=== PATIENT | male | born 1990 | race Caucasian/White ===

== ENCOUNTER 2024-02-10 10:00 | Emergency (ER) | payer SELFPAY ==
[~2024-02-10] VITALS: Ht 182.9 cm; Wt 100.0 kg
[~2024-02-10 10:00] MED LIST: CEPHALEXIN500 MG PO; CORTISPORIN OTI10 M2 AS; KEFLEX500 MG PO; NAPROSYN500 MG PO; NO
[2024-02-10] MEDS ORDERED: SODIUM CHLORIDE 0.9% 1,000 ML IV ONE (10:25)
[2024-02-10] MEDS ORDERED: ONDANSETRON HCl 4 MG/2 ML SDV IV ONE (10:25)
[2024-02-10] MEDS ORDERED: KETOROLAC TROMETHAMINE 30 MG/ML SDV IV ONE (10:25)
[2024-02-10 10:34] LABS: BASO% 0.4 % (0-3); EOS% 1.2 % (0-8); HEMATOCRIT 47.4 % (39.0-50.0); HEMOGLOBIN 16.4 g/dl (14.0-18.0); IMMATURE GRANULOCYTES 0.1 % (0.0-5.0); LYMPH% 14.3 % (15-41); MEAN CELL VOLUME 95.2 fL CALC (80.0-100.0); MEAN CORPUSCULAR HGB 32.9 pG CALC (26.0-32.0); MEAN CORPUSCULAR HGB CONC 34.6 g/dL CAL (32.0-36.0); MONO% 6.7 % (2-13); NEUT# 10.97 thou/uL (1.82-7.42); NEUT% 77.3 % (42-76); RED BLOOD COUNT 4.98 mill/uL (4.70-6.10); RED CELL DISTRI WIDTH 11.8 % (11.5-15.5)
[2024-02-10 10:53] LABS: ALBUMIN 4.9 g/dL (3.2-5.0); BILIRUBIN, TOTAL 0.9 mg/dL (0.2-1.3); POTASSIUM 3.9 mmol/l (3.5-5.1)
[2024-02-10 11:51] LABS: URINE BLOOD DIPSTICK Negative (NEGATIVE); URINE GLUCOSE - DIPSTICK Negative (NEGATIVE); URINE KETONE 40 mg/dL (NEGATIVE); URINE LEUK ESTERASE Negative (NEGATIVE); URINE NITRITE - DIPSTICK Negative (Negative); URINE PH 8.5 (4.5-8.0); URINE PROTEIN - DIPSTICK 30 mg/dL (NEG-TRACE)
[2024-02-10 11:52] LABS: URINE COLOR Yellow
[2024-02-10 12:00] LABS: URINE SQUAMOUS EPITHELIAL CELL RARE EPI/hpf (0-FEW)
[2024-02-10] MEDS ORDERED: ISOVUE-300 (Iopamidol) 100 ML SDV IV ONE (12:00)
[2024-02-10 12:03] VITALS: BP 137/83
[2024-02-10] MEDS ORDERED: LORTAB 5/3255 MG PO (13:20)
[2024-02-10] MEDS ORDERED: NAPROXEN500 MG PO (13:20)
[2024-02-10] MEDS ORDERED: ZOFRAN4 MG/TAB PO (13:20)
[2024-02-10 14:15] VITALS: BP 153/106
[2024-02-10 14:17] VITALS: BP 150/99
[2024-02-10 14:23] VITALS: BP 150/99
== END 2024-02-10 14:23 | disposition home or self-care (01) | DRG 446 ==
LOC: ED 10:00
PROVIDERS: Family Medicine
DX: K80.20 Calculus of gallbladder without cholecystitis without obstruction (principal); F17.210 Nicotine dependence, cigarettes, uncomplicated
CPT/HCPCS: Q9967